=== PATIENT | female | born 1975 | race African-American/Black ===

== ENCOUNTER → 2025-01-06 | Emergency (ER) | payer SELFPAY ==
[~2025-01-06] VITALS: Ht 170.2 cm; Wt 99.8 kg
[~2025-01-06] MED LIST: ALBU18HF2 INH; FERR-68 PO
[2025-01-06 13:11] VITALS: TEMP 98.5
[2025-01-06 13:49] LABS: PLATELET COUNT (AUTO) 350 K/uL (150-450); RED BLOOD CELL COUNT(AUTO) 3.76 MIL/uL (4.0-5.2); RED CELL DISTRIBUTION WIDTH 21.1 % (11.5-15.0); WHITE BLOOD COUNT (AUTO) 8.9 K/uL (4.3-11.0)
[2025-01-06 13:56] LABS: CALCIUM, SERUM 8.2 mg/dL (8.5-10.1); CREATININE 1.1 mg/dL (0.6-1.3); SODIUM SERUM 142.0 mmol/L (136-145); UREA NITROGEN, BLOOD 12.0 mg/dL (7-18)
[2025-01-06 15:10] VITALS: BP 136/92; O2SAT 98
== END | disposition home or self-care (01) ==
LOC: ER 13:10
DX: J44.1 Chronic obstructive pulmonary disease with (acute) exacerbation (principal); I10 Essential (primary) hypertension; E11.9 Type 2 diabetes mellitus without complications; F17.200 Nicotine dependence, unspecified, uncomplicated; Z79.4 Long term (current) use of insulin
CPT/HCPCS: 36415; 71045-TC; 80048-TC; 85025-TC